=== PATIENT | female | born 1995 | race African-American/Black ===

== ENCOUNTER 2017-11-20 09:34 | Emergency (ER) | payer BC, OTHER ==
[~2017-11-20] VITALS: Ht 162.6 cm; Wt 94.9 kg
[2017-11-20 09:39] VITALS: TEMP 36.7; Ht 162.6 cm; Wt 94.9 kg
[2017-11-20] MEDS ORDERED: IBUPROFEN 600 MG TAB PO STA (10:04)
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
[2017-11-20 11:08] VITALS: BP 132/94; PULSE 86; O2SAT 99
[2017-11-20] MEDS ORDERED: IBUP-1451 PO (11:08)
[2017-11-20] MEDS ORDERED: CYCL5TAB PO (11:08)
== END 2017-11-20 11:19 | disposition home or self-care (01) ==
LOC: C.EDB 09:37 → C.EDA 11:19
DX: M54.5 Low back pain (principal); V47.5XXA Car driver injured in collision with fixed or stationary object in traffic accident, initial encounter; Y92.488 Other paved roadways as the place of occurrence of the external cause